=== PATIENT | female | born 1980 | race Caucasian/White ===

== ENCOUNTER 2018-01-05 18:30 | Emergency (ER) | payer SELFPAY ==
[~2018-01-05] VITALS: Ht 167.6 cm; Wt 64.5 kg
[2018-01-05 20:50] VITALS: BP 122/77
== END 2018-01-05 20:51 | disposition left against medical advice (07) ==
LOC: ED 19:45
DX: O26.892 Other specified pregnancy related conditions, second trimester (principal); Z3A.24 24 weeks gestation of pregnancy; R10.9 Unspecified abdominal pain; V19.60XA Unspecified pedal cyclist injured in collision with unspecified motor vehicles in traffic accident, initial encounter; Y93.89 Activity, other specified; Y99.8 Other external cause status; Y92.89 Other specified places as the place of occurrence of the external cause
CPT/HCPCS: 76815; 99284